=== PATIENT | female | born 1985 | race Caucasian/White ===

== ENCOUNTER 2020-06-27 17:29 | Emergency (ER) | payer OTHER ==
[~2020-06-27] VITALS: Ht 175.3 cm; Wt 100.0 kg
--- NOTE | 2020-06-27 17:38 | PHYS DOC ---
Past Medical History Past Medical History: No Pertinent History (BILL JEFFERS MD) Drug Use: None (BILL JEFFERS MD) General Adult EDM: Chief Complaint: FALL OUT OF TREE HPI: HPI: Patient is a 35 year old female who arrives via EMS with a chief complaint of right foot and left ankle pain. Patient complains of significant stabbing, throbbing pain in the right foot and warm mild pain in the left lateral ankle. Patient was in a tree and fell. Patient used a ladder to climb up the tree to get her cat is approximately 8 feet off the ground and was trying to climb back down the ladder and fell onto the ground. Her feet were approximately 5 to 6 feet off the ground when she fell. Patient did not hit her head or have loss of consciousness. Patient denies radiation of the pain or any other symptoms other than lower extremity injury. (BILL JEFFERS MD) Review of Systems: Review of Systems: Constitutional: Denies fever or chills. [] Eyes: Denies change in visual acuity. [] HENT: Denies nasal congestion or sore throat. [] Respiratory: Denies cough or shortness of breath. [] Cardiovascular: Denies chest pain or edema. [] GI: Denies abdominal pain, nausea, vomiting, bloody stools or diarrhea. [] : Denies dysuria. [] Musculoskeletal: Denies back pain but has right foot and left ankle pain Integument: Denies rash. [] Neurologic: Denies headache, focal weakness or sensory changes. [] Endocrine: Denies polyuria or polydipsia. [] Lymphatic: Denies swollen glands. [] Psychiatric: Denies depression or anxiety. [] (BILL JEFFERS MD) Heart Score: Risk Factors: Risk Factors: DM, Current or recent (<one month) smoker, HTN, HLP, family history of CAD, obesity. Risk Scores: Score 0 - 3: 2.5% MACE over next 6 weeks - Discharge Home Score 4 - 6: 20.3% MACE over next 6 weeks - Admit for Clinical Observation Score 7 - 10: 72.7% MACE over next 6 weeks - Early Invasive Strategies (BILL JEFFERS MD) Current Medications: Current Medications Morphine Sulfate (Morphine Sulfate) 4 mg 1X ONCE IV ; Start 06/27/20 at 17:45; Stop 06/27/20 at 17:46; Status DC Ondansetron HCl (Zofran) 4 mg 1X ONCE IVP ; Start 06/27/20 at 17:45; Stop 06/27/20 at 17:46; Status DC (BILL JEFFERS MD) Physical Exam: PE: Constitutional: Well developed, well nourished, no acute distress, non-toxic appearance. [] HENT: Normocephalic, atraumatic, bilateral external ears normal, no trismus, nose normal. [] Eyes: PERRLA, EOMI, conjunctiva normal, no discharge. [] Neck: Normal range of motion, no tenderness, supple, no stridor. [] Cardiovascular:Heart rate regular rhythm, slightly diminished right dorsalis pedis pulse that seems to be positional but is present, left lower extremity pulse intact. Cap refill in both lower extremities is less than 2 seconds Lungs & Thorax: Bilateral breath sounds clear, no respiratory distress Abdomen: soft, no tenderness, no masses, no pulsatile masses. [] Skin: Warm, dry, no erythema, abrasion to left lateral malleolus Back: No tenderness, no CVA tenderness. [] Extremities: Deformity and swelling present to the right mid dorsal foot. Neurovascular intact distally. Mild tenderness and swelling to the left lateral malleolus with abrasion. Neurovascular intact distally. Neurologic: Alert and oriented X 3, normal motor function, normal sensory function, no focal deficits noted. [] Psychologic: Affect normal, judgement normal, mood normal. [] (BILL JEFFERS MD) EKG: EKG: [] (BILL JEFFERS MD) Radiology/Procedures: Radiology/Procedures: [] (BILL JEFFERS MD) Course & Med Decision Making: Course & Med Decision Making Pertinent Labs and Imaging studies reviewed. (See chart for details) [] 35-year-old female that fell out of a tree and has a deformity to the right foot. Initial assessment done by me and care will be signed over Dr. Sophy solorzano on the x-rays and disposition. (BILL JEFFERS MD) Course & Med Decision Making Assumed care at shift change disposition pending reevaluation and CT imaging right lower extremity. Previous results reviewed patient with Lisfranc fracture on the right and lateral malleolus fracture on the left. Per history patient was using a ladder in a tree getting her cat down. Patient fell approximately 6 to 5 feet onto her feet denied any head injury sudden onset of bilateral lower extremity pain right greater than left. On exam patient's bilateral extremities are neurovascularly intact cap refill less than 2 seconds. There is significant swelling of the right foot. There is swelling of the patient's left ankle with some abrasion. Patient's pain treated with fentanyl and morphine with improvement. Discussed patient with Dr. Stein-- refers patient to [facility]. Discussed patient with [facility]---- When I initially discussed patient with [facility]-- informed of only RIght foot fracture. Advised patient of plan to DC home and follow up at [facility] at 0900hrs in the AM. Patient concerned about left ankle pain and swelling. I did briefly discuss transfer to [facility] for inpatient hospitalization with patient. I called [facility] back-- to discuss possible transfer as-well if inform of injury on opposite extremity. Advised about patients concerns of inability to ambulate. [facility] advised center is a capacity and would prefer to have patient follow up on outpatient basis. Splinting of RLE by Nurse echo tech and myself---splinted patients right lower extremity--- posterior and stirrup with large amount of padding-- NVI post applications. Splint was applied with no complications. A cam boat was placed on patients left lower extremity. Patient was able to ambulate with crutches. Patient felt comfortable going home. Patient was discharged home with Rx norco and naprosyn. Advised to return to ER if pain in extremity increases. Patient to follow up at [facility] [address] Karimi. (SPRING DESIR DO) Joey Disclaimer: Joey Disclaimer: This electronic medical record was generated, in whole or in part, using a voice recognition dictation system. (BILL JEFFERS MD) Departure Departure Impression: Primary Impression: Right foot injury Additional Impressions: Closed left fibular fracture Lisfranc fracture Disposition: DC HOME SELF CARE/HOMELESS Condition: STABLE Patient Instructions: Ankle Fracture, Foot Fracture Scripts Naproxen (NAPROSYN) 500 Mg Tablet 500 MG PO BID for 30 Days, #60 TAB Prov: SPRING DESIR DO 06/27/20 Hydrocodone/Apap 5-325 (NORCO 5-325 TABLET) 1 Each Tablet 1 TAB PO PRN Q6HRS PRN for PAIN, #20 TAB 0 Refills Prov: SPRING DESIR I DO 06/27/20 BILL JEFFERS MD Jun 27, 2020 17:38 SPRING DESIR DO Jun 27, 2020 21:42
[2020-06-27] MEDS ORDERED: MORPHINE SULFATE 4 MG/ML VIAL. IV ONE ×2 (17:45→19:45)
[2020-06-27] MEDS ORDERED: ONDANSETRON PF 4 MG/2 ML VIAL. IVP ONE (17:45)
--- NOTE | 2020-06-27 18:26 | RAD ---
3 use both feet and 3 views bilateral ankle HISTORY: Fell out of tree 3 views bilateral feet There are multiple fractures in the right foot including a minimally displaced fracture of the distal fifth metatarsal and a tiny avulsion from the base of the fifth metatarsal. There is avulsion of a cornuate from the medial aspect of the navicular. There is also flexion of the midfoot. There is a mild step-off of the third metatarsal from the middle cuneiform and there is suggestion of either a fracture of the lateral cuneiform or cuboid. On the left the visualized osseous structures appear intact. IMPRESSION: 1. Multiple fractures of the right foot with flexion and probable homolateral Lisfranc type injury. 2. Fractured distracted cornuate from the medial aspect of the navicular. 3. No acute findings left foot. End impression Three-view bilateral ankles There is mild widening of the lateral mortise of the left angle. There is irregularity of the lateral malleolus the left consistent with a oblique fracture just above the plafond. IMPRESSION: Nondisplaced oblique fracture of the left lateral malleolus above the level plafond and with mild widening of the lateral mortise. See bilateral feet Electronically signed by: Anthony Francis III, MD (06/27/2020 6:24 PM) [facility]
--- NOTE | 2020-06-27 19:10 | RAD ---
STUDY: CT of the right lower extremity without contrast INDICATION: Right foot fracture. COMPARISON: Same day radiographs. TECHNIQUE: Axial CT imaging of the right lower extremity performed without contrast. Coronal and sagittal reformats were obtained. The [id number] includes the entirety of the foot and ankle. One or more of the following individualized dose reduction techniques were utilized for this examination: 1. Automated exposure control 2. Adjustment of the mA and/or kV according to patient size 3. Use of iterative reconstruction technique. FINDINGS: Severe Lisfranc fracture/dislocation with comminuted fractures of all three cuneiforms. Dislocation across the first TMT joint with the medial cuneiform displaced dorsal relative to the first metatarsal base. Small fracture fragments originating from the medial aspect of the first metatarsal base. The plantar margin of the medial cuneiform is fractured to the greatest degree with numerous displaced fragments. It is favored that a very large fragment displaced along the plantar/medial aspect of the navicular, image 41 series 6 and image 40 series 7, is from the medial cuneiform. Fracture/dislocation across the second TMT joint with the metatarsal deviated laterally and dorsal angulation across the TMT joint. Same as the medial cuneiform, the middle cuneiform is fractured greatest along its plantar margin with several displaced fragments. Fracture/dislocation across the third TMT joint also with dorsal apex angulation, lateral displacement of the third metatarsal, fragments displaced off the lower margin of the lateral cuneiform and mild fracturing at the base of the third metatarsal. Traumatic malalignment in the lateral direction across the fourth and fifth TMT joints but involving the fourth more so than the fifth. Mild fracturing at the fourth metatarsal base. Minimally displaced fifth metatarsal tuberosity avulsion fracture. Comminuted fracture the cuboid with displaced fracture fragments. Mild traumatic malalignment across the calcaneocuboid joint with abnormal widening mainly along the plantar and medial aspect of the joint space. Displaced avulsion fracture of the navicular at the posterior tibial tendon insertion. The configuration of the avulsion fragment suggests a cornual and configuration of the navicular. Nondisplaced fracture of the avulsion fracture itself, image 42 series 7. Mild fracturing of the anterior process of the calcaneus, image 25 series 6. The talus is intact and there is maintained alignment across the subtalar joint. The distal tibia and fibula are intact. Mild osseous remodeling at the anterior aspect of the distal fibula typical of prior ligamentous injury. Subtle nondisplaced fracture of the fifth metatarsal head. More noticeable but not significantly displaced fracture of the fourth metatarsal head. Several foci of gas intermixed between midfoot fracture fragments. Small amount of gas within the TMT joints best seen at the first TMT joint on image 36 series 6. The peroneus brevis is visualized to its insertion. The peroneus longus courses between fracture fragments at the midfoot. The PTT is visualized to its attachment on the avulsed navicular fragment. The FDL and FHL appear intact. Unremarkable Achilles. The anterior tibial tendon is not able to be delineated as it extends along the midfoot. Its integrity is uncertain. Extensive soft tissue sequela of trauma to include hematoma formation within/between intrinsic musculature of the plantar foot as seen along the metatarsals on image 30 series 6. IMPRESSION: 1. Compound Lisfranc fracture/dislocation with severely comminuted and displaced fractures of all three cuneiforms and the cuboid. Fractures involve the base of all the metatarsals but to a lesser extend than the tarsal bones. Mild traumatic malalignment across the calcaneocuboid joint. These findings are detailed in the body of the report. In keeping with the compound nature of the fracture there is scattered gas intermixed between midfoot fracture fragments and within/adjacent to a few TMT joints. 2. Cornuate configuration of the navicular with a prominent avulsion fracture at the PTT insertion. 3. Mild fractures of the anterior process of the calcaneus and the fourth and fifth metatarsal heads. 4. The anterior tibial tendon becomes indistinct as it courses between fracture fragments at the midfoot. Its integrity is uncertain. The peroneus longus extends between fracture fragments at the midfoot but can be visualized past these fragments suggesting that it is intact. Electronically signed by: JOSEPH MCCARTHY MD (06/27/2020 7:07 PM) [id number]
[2020-06-27 19:24] LABS: BILIRUBIN,URINE NEGATIVE (NEG); CLARITY,URINE CLEAR; COLOR,URINE YELLOW; NITRITE,URINE NEGATIVE (NEG); PROTEIN,URINE 100 mg/dL (NEG-TRACE); UROBILINOGEN,URINE 0.2 mg/dL (0.2 mg/dL)
[2020-06-27 19:35] LABS: BACTERIA,URINE FEW /HPF (0-FEW); RBC,URINE 0 /HPF (0-2); WBC,URINE OCC /HPF (0-4)
[2020-06-27] MEDS ORDERED: HYDROmorphone 2 MG/ML VIAL IVP ONE (20:00)
[2020-06-27] MEDS ORDERED: HYDR-3164 PO (20:48)
[2020-06-27] MEDS ORDERED: NAPR-683 PO (21:04)
[2020-06-27 21:15] VITALS: BP 131/72
== END 2020-06-27 21:18 | disposition home or self-care (01) ==
LOC: ER 17:29
DX: S92.241A Displaced fracture of medial cuneiform of right foot, initial encounter for closed fracture (principal); S82.65XA Nondisplaced fracture of lateral malleolus of left fibula, initial encounter for closed fracture; W14.XXXA Fall from tree, initial encounter; Y93.89 Activity, other specified; Y92.89 Other specified places as the place of occurrence of the external cause; Y99.8 Other external cause status
CPT/HCPCS: 29515; 73610; 73630; 73700; 81001; 87086; 96374; 96375; 96376; 99285; J1170; J2270; J2405; L4350